=== PATIENT | female | born 1970 | race Caucasian/White ===

== ENCOUNTER 2019-04-07 22:51 | Emergency (ER) | payer BC ==
[~2019-04-07] VITALS: Ht 154.9 cm; Wt 65.9 kg
[2019-04-07 23:00] VITALS: BP 134/82; TEMP 97.6
[2019-04-07] MEDS ORDERED: FASENRA30 MG/1 ML SQ (23:15)
[2019-04-07] MEDS ORDERED: RT SPIRIVA18 MCG IH (23:15)
[2019-04-07] MEDS ORDERED: FLONASE NASAL S16 GM NS (23:16)
[2019-04-07] MEDS ORDERED: PROTONIX 40MG T40 MG PO (23:16)
[2019-04-07] MEDS ORDERED: SINGULAIR 110 MG/TAB PO (23:17)
[2019-04-07] MEDS ORDERED: BREO IH (23:17)
[2019-04-07] MEDS ORDERED: OPTIVAR 6 ML 6 M6 ML NS (23:17)
[2019-04-07] MEDS ORDERED: TEMOVATE0.052 TOP (23:18)
[2019-04-07] MEDS ORDERED: VENTOLIN0.09 MG IH (23:18)
[2019-04-08 00:04] VITALS: PULSE 81
== END 2019-04-08 00:04 | disposition home or self-care (01) ==
LOC: COL.ER 22:51
DX: M76.62 Achilles tendinitis, left leg (principal); J45.909 Unspecified asthma, uncomplicated; Z79.51 Long term (current) use of inhaled steroids